=== PATIENT | female | born 1980 | race African-American/Black ===

== ENCOUNTER 2017-02-01 14:37 | Emergency (ER) | payer OTHER ==
--- NOTE | ~2017-02-01 | CT71 ---
[facility] A Service of [facility] RADIOLOGY TEXT RESULTS PATIENT: MOUNIKA BUTLER LOCATION: [facility] : [birth year] UNIT #: [id number] AGE: [address]: Sami Pinto MD SEX: F ORDER DR: [id number] [facility] [address]. [place], [place] [address] [id number] MR#: [id number] Acc #: [id number] NAME: MOUNIKA BUTLER : 1980 SEX: F STUDY DATE/TIME: 02/01/2017 14:52 UNIT: [facility] ROOM: STUDY DESCRIPTION: CT Head Wo Contrast Attending Physician: Sami Pinto M.D. Ordering Physician: Sami Pinto M.D. Primary Care Physician: Primary Care Physician No MEDICAL IMAGING REPORT This report is preliminary unless electronic signature is present EXAM CT head without contrast dated 02/01/2017. COMPARISON None. HISTORY Headaches on and off for 1 month, worse since 01/31/2017. Pain around the right eye and forehead. TECHNIQUE CT of the head was obtained without contrast in the axial plane as per the protocol. This CT exam was performed with one or more of the following radiation dose reduction techniques: Automatic exposure control, adjustment of mA and/or kV according to patient size, and iterative reconstruction. FINDINGS Axial noncontrast images were obtained from the skull base to the vertex. Ventricular size and configuration are normal. There is no evidence of acute infarct or hemorrhage. There are no extra-axial fluid collections. No mass lesion or mass effect is seen. There are no skull fractures. Bifrontal sinuses are not pneumatized. It is an incidental benign finding. IMPRESSION Normal noncontrast head CT. Dictated by... Donovan Baig M.D. THIS IS AN ELECTRONICALLY VERIFIED REPORT [facility] A Service of [facility] RADIOLOGY TEXT RESULTS PATIENT: MOUNIKA BUTLER LOCATION: [facility] : 82 UNIT #: [id number] AGE: [address]: Sami Pinto MD SEX: F ORDER DR: Donovan Baig M.D. at 02/02/2017 3:23 PM CPR/psc TD: 02/01/2017 17:36 JOB #: [id number] MEDICAL IMAGING REPORT Page 1 of 1 COPY
== END 2017-02-01 17:10 | disposition home or self-care (01) ==
LOC: CED 14:37
DX: R51 Headache (principal); J30.2 Other seasonal allergic rhinitis
CPT/HCPCS: 70450; 84703; 96374; 96375; 99284; J0780; J1200; J1885